=== PATIENT | female | born 1995 | race Caucasian/White ===

== ENCOUNTER 2018-01-09 12:25 | Emergency (ER) | payer OTHER ==
[2018-01-09 12:39] VITALS: TEMP 97.6; BMI 29.2
[2018-01-09] MEDS ORDERED: morphine CARPU-JECT 2 MG/1 ML DISP.SYRIN IM ONE (13:38)
[2018-01-09] MEDS ORDERED: ONDANSETRON *ODT* 4 MG TABLET SL ONE (13:38)
[2018-01-09] MEDS ORDERED: ACETAMINOPHEN 500 MG TABLET (FP) PO ONE (13:39)
[2018-01-09] MEDS ORDERED: MORPHINE SULFATE 10 MG/1 ML *VIAL ONE (13:45)
[2018-01-09] MEDS ORDERED: ACETAMINOPHEN 325 MG TABLET (FP) ONE (13:45)
[2018-01-09] MEDS ORDERED: ONDANSETRON *ODT* 4 MG TABLET ONE (13:46)
--- NOTE | 2018-01-09 13:48 | PDOC ---
History of Present Illness - General Chief Complaint: Pain Stated Complaint: ABD PAIN Time Seen by Provider: 01/09/18 13:04 History Source: Patient Exam Limitations: No Limitations - History of Present Illness Travel History: No Initial Comments: 01/09/18 13:39 HPI: This 22 yr old female was BIBA with c/o RLQ pain and a known ovarian cyst. Patient was initially seen overnight at [facility] for a complaint of right lower quadrant abdominal pain. She had been noted to have had a right ovarian cyst that has been causing her some difficulties and she needs to follow up as an outpatient for scheduled surgery. She was seen in [place] was given pain medications however she did not pick up operator her prescriptions and is now here for additional pain. She has a copy of all of her records from [place]. There was a CAT scan that was obtained with IV contrast at that time. He was found with an impression of a right ovarian teratoma measuring 4 x 2 x 4 cm however the right ovarian shows flow and appears to be present on Doppler imaging. Left ovary is grossly unremarkable as well as the uterus and endometrium. There was a set of labs obtained with a CBC and CMP which are all within normal limits. She was given a script for pain medication from [facility] last evening at 11 pm but did not pick up operator the prescription. It is at [facility]. She was given follow up instructions to follow up in [facility]. I have reviewed prior charts at , noted pt had MRI of pelvis in October [address] Farrell with a finding consistency with Right ovarian cyst and dermoid. Chief Compliant: ovarian cyst Pain location:RLQ pain sharp Duration: days Modifying factors:none Quality:throught out the abdomen Radiating:from RLQ Severity:08/14 Time:constant PMH: denies FH: Pt has not recently traveled outside the country in the last 30 days. Pt has not been in contact with people who have traveled out of the country, in contact with people who have been ill with fever, n, v, d. SH: smoking use: NONE illicit drug use: NONE alcohol use: NONE PSH: denies Home med use noted on JAN Allergies: NKA Immunizations: LMP 3 yrs ago, on Depo G 3 P 1 01/09/18 14:14 Past History - Past Medical History Allergies/Adverse Reactions: Allergies Allergy/AdvReac Type Severity Reaction Status Date / Time No Known Allergies Allergy Verified 01/09/18 16:57 Home Medications: Ambulatory Orders Tramadol HCl [Ultram] 50 mg PO BID 3 Days #6 tablet MDD 2 01/09/18 Asthma: No Cancer: No Cardiac Disorders: No COPD: No Diabetes: No HTN: No Seizures: No Thyroid Disease: No Other medical history: denies - Reproductive History Is Patient Now?: No - Suicide/Smoking/Psychosocial Hx Smoking History: Current some day smoker Have you smoked in the past 12 months: Yes Information on smoking cessation initiated: No Hx Alcohol Use: No (denies) Drug/Substance Use Hx: Yes Substance Use Type: Marijuana Hx Substance Use Treatment: No Review of Systems - Review of Systems Able to Perform ROS?: Yes Is the patient limited Croatian proficient: Yes Constitutional: No: Symptoms Reported HEENTM: No: Symptoms Reported Respiratory: No: Symptoms reported Cardiac (ROS): No: Symptoms Reported ABD/GI: Yes: Symptoms Reported, See HPI, Abdominal cramping. No: Constipated, Diarrhea, Nausea, Vomiting : No: Symptoms Reported Musculoskeletal: No: Symptoms Reported Integumentary: No: Symptoms Reported Neurological: Yes: Symptoms reported *Physical Exam - Vital Signs Last Vital Signs Temp Pulse Resp BP Pulse Ox 97.6 F 55 L 18 121/66 100 01/09/18 12:33 01/09/18 12:33 01/09/18 12:33 01/09/18 12:33 01/09/18 12:33 - Physical Exam General Appearance: Yes: Appropriately Dressed HEENT: positive: Normal Voice Neck: positive: Trachea midline Respiratory/Chest: positive: Lungs Clear Cardiovascular: positive: Regular Rate Gastrointestinal/Abdominal: positive: Normal Bowel Sounds, Flat, Soft, Guarding , Rebound, Tenderness (right lower quad). negative: Hernia, Hepatomegaly Extremity: positive: Normal Capillary Refill, Normal Inspection Medical Decision Making - Medical Decision Making 01/09/18 13:48 Patient initially seen and examined. She is complaining of right lower quadrant abdominal pain that is unchanged. She has not taken any pain medication since her last hospital visit in [facility] yesterday evening to last night. She did not get a chance workup her pain medication at the right aid At this time I have given the patient some pain medication for comfort as well as a heating pack. Will reassess. UA obtained to rule out any hCG 01/09/18 13:52 01/09/18 15:24 Pt states pain has subsided since pain meds given. Pt will be discharged with instructions to aid in her pain relief and encourage follow up 01/09/18 17:19 Pt attempted to retriage for more pain medications since she can't get to the pharmacy so she wanted more pain medication. Pt was sent lortab for pain for 3 days to [facility] of her choice and discharged. *DC/Admit/Observation/Transfer Diagnosis at time of Disposition: Teratoma of right ovary Ovarian cyst Qualifiers: Laterality: right Qualified Code(s): N83.201 - Unspecified ovarian cyst, right side - Discharge Dispostion Disposition: HOME Condition at time of disposition: Stable Admit: No - Prescriptions Prescriptions: Tramadol HCl [Ultram] 50 mg PO BID 3 Days #6 tablet MDD 2 - Referrals Referrals: Amy Farrell [Primary Care Provider] - - Patient Instructions Printed Discharge Instructions: DI for Ovarian Cyst, Ovarian Cyst Removal -- Laparoscopic Surgery Additional Instructions: Discharge instructions 1. Please follow up with your primary physician within the next few days and explain that you have been seen here in the Emergency Room for pain related ovarian cyst. You have a scheduled appt with a BUSINESS MANAGER at the [facility] scheduled. Please continue to keep this appointment. 2. If you experience any worsening of symptoms, such as increase pain, bleeding please return to the ER 3. Rest, avoid sexual intercourse,, douching, or tampon use. 4. Drink plenty of water, take tylenol or motrin for pain, you can use heating pack to the area. Avoid lifting or bending until pain resolved. - Post Discharge Activity
[2018-01-09 16:12] VITALS: BP 120/59; PULSE 94
[2018-01-09 22:26] LABS: URINE APPEARANCE SLCLOUDY; URINE BILIRUBIN NEGATIVE (NEGATIVE); URINE BLOOD 3+ (NEGATIVE); URINE COLOR YELLOW; URINE GLUCOSE (UA) NEGATIVE (NEGATIVE); URINE KETONE 2+ (NEGATIVE); URINE LEUK ESTERASE NEGATIVE (NEGATIVE); URINE NITRITE NEGATIVE (NEGATIVE); URINE UROBILINOGEN NEGATIVE mg/dL (0.2-1.0)
[2018-01-09 22:53] LABS: URINE PROTEIN 1+ (NEGATIVE)
[2018-01-09 23:07] LABS: EPI CELLS RARE /HPF (FEW); URINE BACTERIA RARE /hpf (NONE SEEN); URINE MUCUS MANY
== END 2018-01-09 16:10 | disposition home or self-care (01) ==
LOC: JER 12:25
PROC: 3E023NZ Introduction of Analgesics, Hypnotics, Sedatives into Muscle, Percutaneous Approach (ICD-10-PCS; principal; 2018-01-09)
DX: D27.0 Benign neoplasm of right ovary (principal); F17.210 Nicotine dependence, cigarettes, uncomplicated
CPT/HCPCS: 81003; 81015; 84703; 99283-25

== ENCOUNTER 2018-01-10 10:22 | Emergency (ER) | payer OTHER ==
[2018-01-10 10:46] VITALS: BMI 29.2
[2018-01-10] MEDS ORDERED: ACETAMINOPHEN 1000 MG/100 ML VIAL (NON FORMULARY) IVPB ONE (10:58)
[2018-01-10] MEDS ORDERED: ONDANSETRON 4 MG/2 ML VIAL IVPB ONE (10:58)
--- NOTE | 2018-01-10 11:06 | PDOC ---
History of Present Illness <Eddy Yi - Last Filed: 01/10/18 13:33> - History of Present Illness Initial Comments: 01/10/18 11:13 "The patient is a 22 year old female, with a significant past medical history of right ovarian cyst/teratoma, who presents to the emergency department with right lower quadrant pain, nausea, and vomiting for approximately 4 days. As per patient she was seen at [facility] on 01/08/18 and at [facility] on 01/09/[facility] with similar complaints. Patient had CT scan 2 days ago at [facility] that reportedly showed a 4cm teratoma. Pt was discharged with script for tramadol and foot tender f/u appointment TODAY. However, pt reports she has not picked up her prescriptions and came to ED today for continued pain. Patient reports her pain was initially a 10/10 this morning. However after taking Ibuprofen patient states her pain went down to a 6/10. Patient denies any dysuria, hematuria, frequency, urgency, vaginal bleeding or discharge. She denies any fever or chills. Of note, pt states that she first experience pain like this 3 months ago. She had a pelvic MRI at the time here that showed 8cm ovarian dermoid cyst. Pt has not f/u'ed with manager mental health since then. Allergies: NKDA Past Surgical History: None reported Social History: Non smoker. No ETOH or recreational drug use. " <Dino Black - Last Filed: 01/10/18 20:14> - General Chief Complaint: Pain Stated Complaint: ABD PAIN Time Seen by Provider: 01/10/18 10:55 Past History <Eddy Yi - Last Filed: 01/10/18 13:33> - Past Medical History Asthma: No Cancer: No Cardiac Disorders: No COPD: No DVT: No Diabetes: No Disorders: (fibroids.) HTN: No Seizures: No Thyroid Disease: No - Suicide/Smoking/Psychosocial Hx Smoking History: Never smoked Have you smoked in the past 12 months: Yes Information on smoking cessation initiated: No Hx Alcohol Use: No Drug/Substance Use Hx: No Substance Use Type: None, Marijuana Hx Substance Use Treatment: No <Dino Black - Last Filed: 01/10/18 20:14> - Past Medical History Allergies/Adverse Reactions: Allergies Allergy/AdvReac Type Severity Reaction Status Date / Time No Known Allergies Allergy Verified 01/10/18 10:30 Home Medications: Ambulatory Orders Tramadol HCl [Ultram] 50 mg PO BID 3 Days #6 tablet MDD 2 01/09/18 Magnesium Citrate [Citroma -] 300 ml PO ONCE #1 bottle 01/10/18 Review of Systems - Review of Systems Comments:: 01/10/18 11:16 "GENERAL/CONSTITUTIONAL: No fever or chills. No weakness. HEAD, EYES, EARS, NOSE AND THROAT: No change in vision. No ear pain or discharge. No sore throat. CARDIOVASCULAR: No chest pain or shortness of breath. RESPIRATORY: No cough, wheezing, or hemoptysis. GASTROINTESTINAL: Yes right lower quadrant pain, nausea, vomiting. No diarrhea or constipation. GENITOURINARY: No dysuria, frequency, or change in urination. MUSCULOSKELETAL: No joint or muscle swelling or pain. No neck or back pain. SKIN: No rash NEUROLOGIC: No headache, vertigo, loss of consciousness, or change in strength/ sensation. ENDOCRINE: No increased thirst. No abnormal weight change. HEMATOLOGIC/LYMPHATIC: No anemia, easy bleeding, or history of blood clots. ALLERGIC/IMMUNOLOGIC: No hives or skin allergy. " <Dino Black - Last Filed: 01/10/18 20:14> *Physical Exam - Vital Signs Last Vital Signs Temp Pulse Resp BP Pulse Ox 98.8 F 55 L 12 108/50 100 01/10/18 10:31 01/10/18 10:31 01/10/18 10:31 01/10/18 10:31 01/10/18 10:31 <Eddy Yi - Last Filed: 01/10/18 13:33> - Vital Signs Last Vital Signs Temp Pulse Resp BP Pulse Ox 98.8 F 55 L 12 108/50 100 01/10/18 10:31 01/10/18 10:31 01/10/18 10:31 01/10/18 10:31 01/10/18 10:31 - Physical Exam Comments: 01/10/18 11:05 "GENERAL: Awake, alert, and fully oriented, in no acute distress HEAD: No signs of trauma EYES: PERRLA, EOMI, sclera anicteric, conjunctiva clear ENT: Auricles normal inspection, hearing grossly normal, nares patent, oropharynx clear without exudates. Moist mucosa NECK: Nontender, no stepoffs, Normal ROM, supple, no lymphadenopathy, JVD, or masses LUNGS: Breath sounds equal, clear to auscultation bilaterally. No wheezes, and no crackles HEART: Regular rate and rhythm, normal S1 and S2, no murmurs, rubs or gallops ABDOMEN: Soft, mild RLQ tenderness, normoactive bowel sounds. No guarding, no rebound. No masses EXTREMITIES: Normal range of motion, no edema. No clubbing or cyanosis. No cords, erythema, or tenderness NEUROLOGICAL: Cranial nerves II through XII intact. 5/5 strength and sensation in all extremities, Normal speech, normal gait, normal cerebellar function SKIN: Warm, Dry, normal turgor, no rashes or lesions noted. <Dino Black - Last Filed: 01/10/18 20:14> ED Treatment Course - LABORATORY CBC & Chemistry Diagram: 01/10/18 11:10 01/10/18 11:10 - ADDITIONAL ORDERS Additional order review: Laboratory Results 01/10/18 01/10/18 01/10/18 11:10 11:10 11:10 PT with INR 12.60 H INR 1.12 PTT (Actin FS) 30.1 Sodium 140 Potassium 3.9 Chloride 105 Carbon Dioxide 25 Anion Gap 10 BUN 11 Creatinine 0.7 Creat Clearance w eGFR > 60 Random Glucose 95 Lactic Acid 1.4 Calcium 8.7 Total Bilirubin 0.8 AST 14 L ALT 22 Alkaline Phosphatase 91 Total Protein 7.6 Albumin 3.8 Blood Type Antibody Screen 01/10/18 11:10 PT with INR INR PTT (Actin FS) Sodium Potassium Chloride Carbon Dioxide Anion Gap BUN Creatinine Creat Clearance w eGFR Random Glucose Lactic Acid Calcium Total Bilirubin AST ALT Alkaline Phosphatase Total Protein Albumin Blood Type A POSITIVE Antibody Screen Negative 01/10/18 11:10 RBC 4.52 D MCV 91.8 MCHC 34.0 RDW 14.2 D MPV 9.9 Neutrophils % 73.7 Lymphocytes % 20.2 D Monocytes % 5.4 Eosinophils % 0.2 Basophils % 0.5 D - RADIOLOGY Radiograph Interpretation: 01/10/18 13:27 EXAM: Transvaginal US INTERPRETED BY: Dr. Chinchilla REVIEWED BY: Dr. Black IMPRESSION: Slightly coarse echotexture of the uterus which is nonspecific. Normal endometrial stripe. Normal-appearing left ovary with multiple small follicles and normal vascular flow. Large echogenic masslike density again seen in the right adnexa measuring 6 x 5 cm with posterior shadowing/attenuated echoes again suggestive of the ethmoid. Further evaluation and confirmation with MRI of the pelvis with be the study of choice. - Medications Given in the ED: ED Medications Discontinued Medications Generic Name Dose Route Start Last Admin Trade Name Serg PRN Reason Stop Dose Admin Acetaminophen 1,000 mg 01/10/18 10:58 01/10/18 11:28 Ofirmev Injection - IVPB 01/10/18 10:59 1,000 mg ONCE ONE Administration Ondansetron HCl 4 mg 01/10/18 10:58 01/10/18 11:29 Zofran Injection IVPB 01/10/18 10:59 4 mg ONCE ONE Administration <Eddy Yi - Last Filed: 01/10/18 13:33> - LABORATORY CBC & Chemistry Diagram: 01/10/18 11:10 01/10/18 11:10 - RADIOLOGY Radiology Studies Ordered: Category Date Time Status TRANSVAGINAL ULTRASOUND US [US] Stat Ultrasound 01/10/18 10:56 Ordered <Dino Black - Last Filed: 01/10/18 20:14> Medical Decision Making - Medical Decision Making 01/10/18 13:18 First call placed to Dr. Rose at 13:18. Awaiting call back. Call returned by Dr. Rose at 13:26, Dr. Andrew production cost estimator. First call placed to Dr. Andrew at 13:36. Case discussed at this time. <Eddy Yi - Last Filed: 01/10/18 13:33> - Medical Decision Making 01/10/18 11:01 22 F with RLQ pain x 3 days. Has had extensive work up at [facility], including labwork and CT scan. Reportedly found to have 4cm teratoma on R ovary 2 days ago. However, imaging from 10/2017 shows 8.8cm cyst. Pt with no acute changes today but with persistent pain. Given colicky nature of pain, will obtain TVUS to r/o torsion given size of cyst. - Labs - TVUS - Pain control - OB consult 01/10/18 15:07 TVUS shows R ovarian cyst. OB consulted for evaluation of possible ovarian torsion. 01/10/18 15:[address] Andrew, cleared for DC today with OB f/u next week. Pt reassessed - pain is now tolerable Pt is well appearing,vitals wnl, clinically stable for DC. I discussed the physical exam findings, ancillary test results and final diagnoses with the patient. I answered all of the patient's questions. The patient was satisfied with the care received and felt comfortable with the discharge plan and treatment plan. The patient agrees to follow up with the primary care physician within 24-72 hours. <Dino Black - Last Filed: 01/10/18 20:14> *DC/Admit/Observation/Transfer - Attestations Scribe Attestion: 01/10/18 13:28 Documentation prepared by Eddy Yi, acting as medical and scientific illustrator for Dino Black MD. <Eddy Yi - Last Filed: 01/10/18 13:33> - Attestations Physician Attestion: 01/10/18 15:19 I, Dr. Dino Black MD, attest that this document has been prepared under my direction and personally reviewed by me in its entirety. I further attest, that it accurately reflects all work, treatment, procedures and medical decision -making performed by me. <Dino Black - Last Filed: 01/10/18 20:14> Diagnosis at time of Disposition: Ovarian cyst - Discharge Dispostion Disposition: HOME - Prescriptions Prescriptions: Magnesium Citrate [Citroma -] 300 ml PO ONCE #1 bottle - Referrals Referrals: Priscila Andrew MD [Staff Physician] - - Patient Instructions Printed Discharge Instructions: DI for Ovarian Cyst Additional Instructions: Please follow up with your foot tender on Sunday as scheduled. air conditioning supervisor your prescription for pain medication and take it as prescribed. If you experience persistent or worsening pain, fevers, vomiting, or any other concerning symptoms, return to the ER immediately.
[2018-01-10] MEDS ORDERED: ACETAMINOPHEN INJECTION 100 ML IVPB ONE (11:19)
[2018-01-10] MEDS ORDERED: ONDANSETRON 4 MG/2 ML VIAL ONE (11:19)
[2018-01-10 11:32] LABS: BASO % 0.5 % (0-2.0); EOS % 0.2 % (0-4.5); HEMATOCRIT 41.4 % (32.4-45.2); HEMOGLOBIN 14.1 GM/dL (10.7-15.3); LYMPH % 20.2 % (8-40); MCH 31.2 pg (25.7-33.7); MEAN CELL VOLUME 91.8 fl (80-96); MEAN PLT VOLUME 9.9 fl (7.5-11.1); MONO % 5.4 % (3.8-10.2); NEUT % 73.7 % (42.8-82.8); PLATELET COUNT 196 K/MM3 (134-434); RBC 4.52 M/mm3 (3.60-5.2); RDW 14.2 % (11.6-15.6); WHITE BLOOD COUNT 6.6 K/mm3 (4.0-10.0)
[2018-01-10 11:43] LABS: INR 1.12 (0.82-1.09); PROTHROMBIN TIME (PATIENT) 12.6 SEC (9.98-11.88)
[2018-01-10 11:46] LABS: ACTIVATED PTT 30.1 SECONDS (26.9-34.4)
[2018-01-10 12:09] LABS: ALBUMIN 3.8 g/dl (3.4-5.0); ANION GAP 10 (8-16); BILIRUBIN,TOTAL 0.8 mg/dL (0.2-1.0); BLOOD UREA NITROGEN 11 mg/dL (7-18); CALCIUM 8.7 mg/dL (8.5-10.1); CHLORIDE 105 mmol/L (98-107); CO2 25 mmol/L (21-32); CREATININE 0.7 mg/dL (0.55-1.02); GLUCOSE,RANDOM 95 mg/dL (74-106); POTASSIUM 3.9 mmol/L (3.5-5.1); SGOT/AST 14 U/L (15-37); SGPT/ALT 22 U/L (12-78); SODIUM 140 mmol/L (136-145); TOT PROT 7.6 g/dl (6.4-8.2)
[2018-01-10 12:10] LABS: ALK PHOS 91 U/L (45-117)
--- NOTE | 2018-01-10 15:13 | CON.OBG ---
Consult Consult Specialty:: head of sales and marketing Referred by:: Dr DAVON Sun Reason for Consultation:: Rt Ovarian cyst , RLQ Pain - History of Present Illness Chief Complaint: 22 yrs , LMP 3 yrs ago , c/o rLQ pain for 3 days . sonogram done is reported 6x5 cm complex , echogenic mass, calcification, with hypecoic area , seen as before in [place]ier noted . . lt ovary mutiple follicular cysts . ut normal. History of Present Illness: pt states she has sudden pain 3 days ago , she went to ER in [facility] . she was told she has mass in her Rt ovary She [facility] , she was sent home on pain med, she could not fill prescription due to weather condition .she returned to ER today in AM .US is done. pt states she has cyst in Rt ovary during her 3 yrs ago, she was told she will need surgery for it . she did not go for it. Records ER shows , she was in , MRi was done was reported 8 cm Rt adnexal possible Dermoid cyst, 1.2 cm uterine leiomyoma . Career Services Officer History MH , Present, amenorrhea for 3 years, she is on Depo Provera inj q 3 months [facility] to [facility] Inj Past MH reg cycle x 28-30 days x no pain. Last Pap > 1 year ago, she is due for one according to her no h/o abn pap Currently not seually active for 6 months no h/o STD OB hx G1 2013 Sp ab G2 2014 Ind AB G3 12/23/2014 at [facility], [facility] . pt states she was told she has cyst in ovary , which will need removal after delivery - History Source History Provided By: Patient, Medical Record Limitations to Obtaining History: No Limitations - Past Medical History NATURAL RESOURCES MANAGER: No: Migraine, Seizure Cardio/Vascular: No: HTN, Murmur Pulmonary: No: Asthma Gastrointestinal: Yes: Other (vomiting yesterday x 3 ). No: Cancer Hepatobiliary: Yes: Other (none known ) Renal/: No: UTI Reproductive: Yes: Fibroids (seen on MRI 1.2 cm subserosal in 10/2017), Other ( Rt OVarian cyst ( Dermoid)). No: Ectopic , Endometriosis, Polycystic Ovary Syndrome, Postmenopausal ...LMP: 01/02/15 (3 years ago , amenorrhea secondory to Depo provera injections ) ...: No (ucg neg on 01/09/18) ...: 3 ...Para: 1 (12/23/2014 at [facility]) Heme/Onc: No: Anemia Infectious Disease: No: STD's Psych: No: Addictions, Anxiety, Bipolar, Depression - Past Surgical History Past Surgical History: Yes: None - Alcohol/Substance Use Hx Alcohol Use: No History of Substance Use: reports: Marijuana (once aweek ) - Smoking History Smoking history: Never smoked Have you smoked in the past 12 months: Yes - Social History History of Recent Travel: No Home Medications - Allergies Allergies/Adverse Reactions: Allergies Allergy/AdvReac Type Severity Reaction Status Date / Time No Known Allergies Allergy Verified 01/10/18 10:30 - Home Medications Home Medications: Ambulatory Orders Tramadol HCl [Ultram] 50 mg PO BID 3 Days #6 tablet MDD 2 01/09/18 Physical Exam-BLOOD BANK SUPERVISOR Vital Signs: Vital Signs Temperature 98.8 F 01/10/18 10:31 Pulse Rate 55 L 01/10/18 10:31 Respiratory Rate 12 01/10/18 10:31 Blood Pressure 108/50 01/10/18 10:31 O2 Sat by Pulse Oximetry (%) 100 01/10/18 10:31 Constitutional: Yes: Well Nourished, Anxious, Mild Distress (pain scale 4-5 /10) Eyes: Yes: WNL HENT: Yes: WNL Neck: Yes: WNL Cardiovascular: Yes: WNL Respiratory: Yes: WNL Gastrointestinal: Yes: WNL, Normal Bowel Sounds, Soft ...Rectal Exam: Yes: Deferred Renal/: No: CVA Tenderness - Left, CVA Tenderness - Right Pelvis: Yes: Tenderness (lower abdomen) External Genitalia: Yes: Normal Internal Exam Deferred: Yes Vaginal Exam: Yes: Discharge (normal). No: Bleeding Cervix: Yes: Normal. No: Cerv Motion Tenderness Uterus: Yes: Normal, Firm, Retroverted Adnexa: Tender: Right, Mass: Right (rt side 5 cm mass felt . tender, enchroaching in front of uterus , ) Breast(s): Yes: WNL. No: Mass Musculoskeletal: Yes: WNL Extremities: Yes: WNL. No: Calf Tenderness Edema: No Integumentary: Yes: Tattoos Neurological: Yes: WNL, Alert, Oriented ...Motor Strength: WNL Psychiatric: Yes: WNL Labs: CBC, BMP 01/10/18 11:10 01/10/18 11:10 Laboratory Tests 01/10/18 11:10 PT with INR 12.60 H INR 1.12 PTT (Actin FS) 30.1 Laboratory Tests 01/10/18 11:10 Blood Type A POSITIVE Problem List - Problems (1) Teratoma of right ovary Code(s): D27.0 - BENIGN NEOPLASM OF RIGHT OVARY Assessment/Plan 22 yrs , on depo provera shots , diagnosed Rt ovarian benign teratoma .rlq pain, possible intermttent torsion Plan pt has appt with Career Services Officer at , [facility] on Sunday . she can be sceduled as planned surgery, discuss with her optios of Laproscopic rt ovarian cystectomy versus Expl lap rt ovarian cystectomy , spillage of contents discussed, possible oopherectomy notified. she is concerned about 1.2 cm leimyoma seen on MRI , I assured her too small , does not need surgery pt can be discharged on pain meds to befollwed in the clinic , Plan for elective surgery
[2018-01-10] MEDS ORDERED: ACETAMINOPHEN 325 MG TABLET (FP) PO ONE (15:55)
[2018-01-10] MEDS ORDERED: ACETAMINOPHEN 325 MG TABLET (FP) ONE (15:58)
[2018-01-10 16:19] VITALS: BP 112/70; PULSE 58; TEMP 98.6
== END 2018-01-10 16:20 | disposition home or self-care (01) ==
LOC: JER 10:22
PROC: 3E033GC Introduction of Other Therapeutic Substance into Peripheral Vein, Percutaneous Approach (ICD-10-PCS; principal; 2018-01-10)
DX: D27.0 Benign neoplasm of right ovary (principal)
CPT/HCPCS: 36415; 76830-TC; 80053; 83605; 85025; 85610; 85730; 86850; 86900; 86901; 99282-25

== ENCOUNTER 2019-09-01 12:55 | Emergency (ER) | payer OTHER ==
[2019-09-01 13:17] VITALS: BP 115/85; PULSE 60; TEMP 98; BMI 28.1
[2019-09-01] MEDS ORDERED: DIPHTH,PERTUSS(ACELL),TET 0.5 ML DISP.SYRIN IM ONE ×2 (14:09→14:50)
--- NOTE | 2019-09-01 14:09 | PDOC ---
History of Present Illness - General Chief Complaint: Injury Stated Complaint: LT KNEE INJURY/LOWER BACK PAIN Time Seen by Provider: 09/01/19 13:49 History Source: Patient Exam Limitations: No Limitations - History of Present Illness Initial Comments: 09/01/19 14:11 Chief complaint: Fall Patient is a healthy 24-year-old female who states last she was walking up the stairs, tripped and fell on her knees. Patient thought she would be okay but her left knee continues to bother her and is swollen. She is ambulatory GENERAL/CONSTITUTIONAL: No fever, weakness. dizziness HEAD, EYES, EARS, NOSE AND THROAT: No change in vision. No ear pain or discharge. No sore throat. CARDIOVASCULAR: No chest pain RESPIRATORY: No shortness of breath or cough GASTROINTESTINAL: No pain, nausea, vomiting, diarrhea or constipation GENITOURINARY: No dysuria MUSCULOSKELETAL: No neck or back pain, + knee injury SKIN: No rash NEUROLOGIC: No headache, vertigo, loss of consciousness, or loss of sensation. GENERAL: The patient is awake, alert, and fully oriented, in no acute distress. HEAD: Normal with no signs of trauma. EYES: Pupils equal, round and reactive to light, sclera anicteric, conjunctiva clear. ENT: pharynx: no erythema, no exudate, uvula midline NECK: supple CHEST: clear, nontender, rr ABD: soft, nontender BACK: no tenderness or signs of injury EXTREMITIES: Right knee with no swelling or tenderness, full range of motion, neurovascular intact. Left knee with swelling, ecchymosis, tenderness to the anterior aspect, limited range of motion, secondary to pain, neurovascular intact. Rest of extremities, normal range of motion, no edema. NEUROLOGICAL: Normal speech, ambulating with cane SKIN: Warm, Dry Past History - Past Medical History Allergies/Adverse Reactions: Allergies Allergy/AdvReac Type Severity Reaction Status Date / Time No Known Allergies Allergy Verified 09/01/19 13:15 Home Medications: Ambulatory Orders Tramadol HCl [Ultram] 50 mg PO BID 3 Days #6 tablet MDD 2 01/09/18 Magnesium Citrate [Citroma -] 300 ml PO ONCE #1 bottle 01/10/18 Ondansetron HCl [Zofran] 4 mg PO TID PRN #6 tablet 01/12/18 Asthma: No Cancer: No Cardiac Disorders: No COPD: No DVT: No Diabetes: No Disorders: (fibroids.) HTN: No Seizures: No Thyroid Disease: No - Psycho Social/Smoking Cessation Hx Smoking History: Unknown if ever smoked Have you smoked in the past 12 months: No Information on smoking cessation initiated: No Hx Alcohol Use: No Drug/Substance Use Hx: No Substance Use Type: None, Marijuana Hx Substance Use Treatment: No *Physical Exam - Vital Signs Last Vital Signs Temp Pulse Resp BP Pulse Ox 98 F 60 16 115/85 100 09/01/19 13:15 09/01/19 13:15 09/01/19 13:15 09/01/19 13:15 09/01/19 13:15 Medical Decision Making - Medical Decision Making 09/01/19 14:24 24-year-old female, healthy, fell several days ago walking up the stairs, mainly here for injury to the left knee which is not gotten better, is swollen and ecchymotic. Patient is ambulatory and neurologically intact. When asked about , patient was not sure, she will get test, she is aware she can have x-ray even if she is , we will discuss after test. Patient is also not up-to-date with tetanus. negative knee xray negative Discussed issues, findings, results, applicable medications and treatments and follow-up. All these were understood and all questions were answered 09/01/19 14:55 Discharge - Discharge Information Problems reviewed: Yes Clinical Impression/Diagnosis: Left knee injury Qualifiers: Encounter type: initial encounter Qualified Code(s): S89.92XA - Unspecified injury of left lower leg, initial encounter Condition: Stable Disposition: HOME - Admission No - Additional Discharge Information Prescription Drug Monitoring Program (I-STOP) results: I-STOP not reviewed - Follow up/Referral Referrals: Gerry Crane MD [Staff Physician] - - Patient Discharge Instructions Patient Printed Discharge Instructions: DI for Knee Pain Additional Instructions: Elevate Motrin 600 mg every 6 hours for pain. clean knee with soap and water and apply bacitracin 2 times daily return to er if fever or knee is red, hot and swollen Call the orthopedist today - Post Discharge Activity
== END 2019-09-01 15:12 | disposition home or self-care (01) ==
LOC: JERFT 12:55
PROC: 3E0234Z Introduction of Serum, Toxoid and Vaccine into Muscle, Percutaneous Approach (ICD-10-PCS; principal; 2019-09-01)
DX: S89.82XA Other specified injuries of left lower leg, initial encounter (principal); S80.02XA Contusion of left knee, initial encounter; W10.8XXA Fall (on) (from) other stairs and steps, initial encounter; Y93.89 Activity, other specified; Y92.89 Other specified places as the place of occurrence of the external cause; Y99.8 Other external cause status
CPT/HCPCS: 73562-TC-LT-FY; 84703; 90471; 90715; 99281-25

== ENCOUNTER 2019-11-12 08:52 | Emergency (ER) | payer OTHER ==
[2019-11-12 09:13] VITALS: BP 112/72; PULSE 85; TEMP 98.4; BMI 29.4
[2019-11-12] MEDS ORDERED: IBUPROFEN 600 MG TABLET (FP) PO ONE ×2 (09:50→09:55)
--- NOTE | 2019-11-12 10:13 | PDOC ---
History of Present Illness - General Chief Complaint: Cold Symptoms Stated Complaint: COLD LIKE SYS Time Seen by Provider: 11/12/19 09:37 History Source: Patient Exam Limitations: No Limitations - History of Present Illness Initial Comments: 11/12/19 10:08 Patient is a 24-year-old female who admits to 3 days of subjective fevers, cough , body aches, sore throat and chills. She states she has been taking Tylenol with some relief. She denies getting a flu shot this year. She does admit to vomiting this morning. She denies any past medical history. Past History - Past Medical History Allergies/Adverse Reactions: Allergies Allergy/AdvReac Type Severity Reaction Status Date / Time No Known Allergies Allergy Verified 09/01/19 13:15 Home Medications: Ambulatory Orders NK [No Known Home Medication] 11/12/19 Asthma: No Cancer: No Cardiac Disorders: No COPD: No DVT: No Diabetes: No Disorders: (fibroids.) HTN: No Seizures: No Thyroid Disease: No - Immunization History Immunization Up to Date: Yes - Psycho Social/Smoking Cessation Hx Smoking History: Never smoked Have you smoked in the past 12 months: No Information on smoking cessation initiated: No Hx Alcohol Use: No Drug/Substance Use Hx: No Substance Use Type: None, Marijuana Hx Substance Use Treatment: No Review of Systems - Review of Systems Comments:: 11/12/19 10:09 - Review of Systems Able to Perform ROS?: Yes Constitutional: Night Sweats, Weakness; Positive chills, subjective fevers, loss of appetite HEENTM: No: Eye Pain, Vision changes, Ear Pain, Throat Swelling, Mouth Pain, Difficulty Swallowing; Positive Throat Pain, Respiratory: No: Shortness of Breath, Wheezing; Positive cough and Sputum Production Cardiac (ROS): No: Chest Pain, Chest Tightness, Palpitations, Irregular Heart Beat, Edema ABD/GI: No: Abdominal Pain, Diarrhea, Positive Nausea, Vomiting Musculoskeletal: No: Back Pain, Joint Pain, Muscle Weakness, Neck Pain; Positive muscle aches Integumentary: No: Lesions, Rash Neurological: No: Headache, Numbness, Tingling, Weakness, Speech Difficulties *Physical Exam - Vital Signs Last Vital Signs Temp Pulse Resp BP Pulse Ox 98.4 F 85 18 112/72 98 11/12/19 09:09 11/12/19 09:09 11/12/19 09:09 11/12/19 09:09 11/12/19 09:09 - Physical Exam 11/12/19 10:12 - Physical Exam General Appearance: Nourished, Appropriately Dressed, No Distress HEENT: EOMI, Normal Voice, TMs Normal, No Pharyngeal Erythema, Hearing Grossly Normal, No TM Bulging. No Muffled/Hoarse voice, No Tonsillar Exudate, No Tonsillar Erythema, No TM Dullness, No TM Erythema, Positive: Nasal Congestion, No Rhinorrhea Neck: Supple, No Rigidity, No Decreased range of motion: Positive anterior cervical lymphadenopathy appreciated Respiratory/Chest: Lungs Clear, Normal Breath Sounds. No Respiratory Distress, No Accessory Muscle Use Cardiovascular: Regular Rhythm, Regular Rate, S1, S2 Gastrointestinal/Abdominal: Normal Bowel Sounds, Soft. Non-tender, No Guarding , No Rebound, No Rigidity Musculoskeletal: Normal Inspection. No Decreased Range of Motion Extremity: Normal Capillary Refill, Normal Inspection Integumentary: Normal Color, Dry. No Rash Neurologic: frit coater II-XII NML intact, Fully Oriented, Alert, Normal Mood/Affect, Normal Response ED Treatment Course - ADDITIONAL ORDERS Additional order review: 11/12/19 10:29 Laboratory Tests 11/12/19 09:05 Influenza A (Rapid) Negative Influenza B (Rapid) Positive A - Medications Given in the ED: ED Medications Discontinued Medications Generic Name Dose Route Start Last Admin Trade Name Frankq PRN Reason Stop Dose Admin Ibuprofen 600 mg 11/12/19 09:50 11/12/19 10:06 Motrin - PO 11/12/19 09:51 600 mg ONCE ONE Administration Medical Decision Making - Medical Decision Making 11/12/19 10:30 Patient is positive for influenza B. She has been made aware that she is outside the window of Tamiflu treatment. She should get plenty of rest and drink plenty of fluids. She should alternate Tylenol and ibuprofen for pain and fevers. She should follow-up with her primary doctor within 1 to 2 days for repeat evaluation. Discharge - Discharge Information Problems reviewed: Yes Clinical Impression/Diagnosis: Influenza B Condition: Stable Disposition: HOME - Follow up/Referral Referrals: [facility] [Provider Group] - Patient Discharge Instructions Patient Printed Discharge Instructions: DI for Influenza -- Adult Additional Instructions: Get plenty of rest and drink plenty of fluids. Take Tylenol or ibuprofen for fevers or body aches. Follow-up with your primary doctor within 1 to 2 days for repeat evaluation. If you do not have 1 a referral has been given to you. Return to the ED for high fevers, shaking chills, profuse vomiting or any other worsening symptoms. - Post Discharge Activity Work/Back to School Note: Back to Work
== END 2019-11-12 10:38 | disposition home or self-care (01) ==
LOC: JERFT 08:52
DX: J10.1 Influenza due to other identified influenza virus with other respiratory manifestations (principal)
CPT/HCPCS: 87804; 99281-25

== ENCOUNTER 2021-08-27 16:38 | Emergency (ER) | payer OTHER ==
[2021-08-27 16:47] VITALS: BP 119/71; PULSE 63; TEMP 98.3; BMI 29.1
[2021-08-27 18:30] LABS: BASO % 0.5 % (0-2.0); EOS % 1.2 % (0-4.5); HEMATOCRIT 41.1 % (32.4-45.2); HEMOGLOBIN 13.9 GM/dL (10.7-15.3); LYMPH % 27.9 % (8-40); MCH 31.5 pg (25.7-33.7); MCHC 33.8 g/dl (32.0-36.0); MEAN CELL VOLUME 93.2 fl (80-96); MEAN PLT VOLUME 9.3 fl (7.5-11.1); MONO % 9.1 % (3.8-10.2); NEUT % 61.3 % (42.8-82.8); PLATELET COUNT 242 10^3/uL (134-434); RBC 4.41 M/mm3 (3.60-5.2); RDW 13.8 % (11.6-15.6); WHITE BLOOD COUNT 10.2 K/mm3 (4.0-10.0)
[2021-08-27 18:33] LABS: EPI CELLS >36 /uL (0-25.1); HCG,QUALITATIVE URINE Negative; HYALINE CASTS 7 /uL (0-3.1); PH,URINE 6.5 (5.0-8.0); URINE APPEARANCE CLOUDY; URINE BACTERIA 2464 /uL (0-1359); URINE BILIRUBIN NEGATIVE (NEGATIVE); URINE COLOR YELLOW; URINE GLUCOSE (UA) NEGATIVE (NEGATIVE); URINE KETONE NEGATIVE (NEGATIVE); URINE LEUK ESTERASE 2+ (NEGATIVE); URINE NITRITE NEGATIVE (NEGATIVE); URINE PROTEIN NEGATIVE (NEGATIVE); URINE RBC 3 /uL (0-23.9); URINE UROBILINOGEN 0.2 mg/dL (0.2-1.0); URINE WBC 213 /uL (0-25.8)
[2021-08-27 19:00] LABS: CALCIUM 8.9 mg/dL (8.5-10.1)
[2021-08-27 19:01] LABS: ALBUMIN 3.7 g/dl (3.4-5.0); BLOOD UREA NITROGEN 10.4 mg/dL (7-18)
[2021-08-27 19:04] LABS: CREATININE 0.6 mg/dL (0.55-1.3)
[2021-08-27 19:06] LABS: BILIRUBIN,TOTAL 0.4 mg/dL (0.2-1); TOT PROT 7.7 g/dl (6.4-8.2)
== END 2021-08-27 19:45 | disposition home or self-care (01) ==
LOC: JER 16:38 → JERFT 16:38
DX: N30.00 Acute cystitis without hematuria (principal)
CPT/HCPCS: 36415; 80053; 81003; 84703; 85025; 87086; 99283-25

== ENCOUNTER 2024-11-16 15:57 | Inpatient (IN) | payer OTHER ==
[2024-11-16 17:14] VITALS: BMI 32.5
[2024-11-16 17:14] LABS: BASO % 0.2 % (0-2.0); EOS % 1.5 % (0-4.5); HEMATOCRIT 37.8 % (32.4-45.2); HEMOGLOBIN 12.3 GM/dL (10.7-15.3); LYMPH % 18.3 % (8-40); MCH 29.8 pg (25.7-33.7); MCHC 32.7 g/dl (32.0-36.0); MEAN CELL VOLUME 91.3 fl (80-96); MEAN PLT VOLUME 10.7 fl (7.5-11.1); MONO % 8.2 % (3.8-10.2); NEUT % 71.8 % (42.8-82.8); PLATELET COUNT 189 10^3/uL (134-434); RBC 4.14 M/mm3 (3.60-5.2); RDW 15.2 % (11.6-15.6); WHITE BLOOD COUNT 10.9 K/mm3 (4.0-10.0)
[2024-11-16 17:23] LABS: INR 0.96 (0.83-1.09)
[2024-11-16 17:25] LABS: ACTIVATED PTT 27.3 SECONDS (25.2-36.5)
[2024-11-16] MEDS: LACTATED RINGERS SOLUTION 1,000 ML/1,000 ML INFUS.BAG IV SCH (17:48)
[2024-11-16 18:07] LABS: POTASSIUM 4.1 mmol/L (3.5-5.1)
[2024-11-16 18:10] LABS: CALCIUM 8.8 mg/dL (8.5-10.1)
[2024-11-16 18:11] LABS: BLOOD UREA NITROGEN 9.5 mg/dL (7-18)
[2024-11-16 18:14] LABS: CREATININE 0.6 mg/dL (0.55-1.3)
[2024-11-16] MEDS ORDERED: OXYTOCIN 30 UNITS in 0.9% NS 30 UNIT/500 ML INFUS.BAG IVPB ONE (20:12)
[2024-11-16] MEDS: OXYTOCIN 30 UNITS in 0.9% NS 30 UNIT/500 ML INFUS.BAG IVPB SCH (20:20)
[2024-11-16] MEDS ORDERED: BUTORPHANOL TARTRATE 2 MG/ML VIAL ONE (23:42)
[2024-11-16] MEDS ORDERED: PROMETHAZINE HCL 25 MG/1 ML VIAL ONE (23:43)
[2024-11-16] MEDS: PROMETHAZINE HCL 25 MG/1 ML VIAL IVPB PRN (23:50)
[2024-11-16] MEDS: BUTORPHANOL TARTRATE 2 MG/ML VIAL IVPB PRN (23:50)
[2024-11-17] MEDS ORDERED: FENTANYL/BUPIVACAINE/NS/PF - PCEA - 50 ML DISP.SYRIN EP ONE (02:26)
[2024-11-17] MEDS ORDERED: NALOXONE HCL 0.4 MG/ML VIAL IVPUSH PRN (02:37)
[2024-11-17] MEDS ORDERED: FENTANYL CITRATE/PF 50 MCG/ML VIAL ONE (02:39)
[2024-11-17] MEDS ORDERED: BUPIVACAINE HCL/PF 0.25% (2.5MG/ML) 10 ML VIAL ONE (02:39)
[2024-11-17] MEDS: FENTANYL/BUPIVACAINE/NS/PF - PCEA - 50 ML DISP.SYRIN EP SCH (02:50)
[2024-11-17] MEDS ORDERED: LIDOCAINE HCL 1% PRESERVATIVE FREE - 30ML VIAL ONE (03:05)
[2024-11-17] MEDS ORDERED: OXYTOCIN 20 UNITS in 0.9% NS 20 UNIT/1,000 ML INFUS.BAG IV ONE (03:05)
[2024-11-17] MEDS ORDERED: WITCH HAZEL 50% (TUCKS) 40 PAD/JAR PAD TP PRN (03:49)
[2024-11-17] MEDS ORDERED: BENZOCAINE 28 GM HEMORRHOIDAL OINTMENT TP PRN (03:49)
[2024-11-17] MEDS ORDERED: ACETAMINOPHEN 325 MG TABLET (FP) PO PRN (03:49)
[2024-11-17] MEDS ORDERED: METHYLERGONOVINE MALEATE 0.2 MG/1 ML AMP IM PRN (03:49)
[2024-11-17] MEDS ORDERED: oxyCODONE HCL 5 MG TABLET PO PRN (03:49)
[2024-11-17] MEDS ORDERED: BISACODYL 10 MG SUPP.RECT RC PRN (03:49)
[2024-11-17 04:06] LABS: CORD BASE EXCESS -6.4 mmol/L (0-2); CORD HCO3 20.4 mmHg (20-29); CORD PCO2 44.7 mmHg (30-78); CORD pH 7.277 (7.14-7.44)
[2024-11-17 04:09] LABS: CORD BASE EXCESS -4.5 mmol/L (0-2); CORD HCO3 24.1 mmHg (20-29); CORD PCO2 57.5 mmHg (30-78); CORD pH 7.24 (7.14-7.44)
[2024-11-17] MEDS: OXYTOCIN 20 UNITS in 0.9% NS 20 UNIT/1,000 ML INFUS.BAG IV SCH (04:15)
[2024-11-17] MEDS ORDERED: IBUPROFEN 600 MG TABLET (FP) PO ONE (05:41)
[2024-11-17] MEDS: IBUPROFEN 600 MG TABLET (FP) PO PRN (05:51)
[2024-11-17 06:00] VITALS: RESP 18
[2024-11-17] MEDS: PRENATAL VITAMINS W/ FOLIC ACID TABLET (FP) PO SCH (09:18)
[2024-11-17] MEDS: BENZOCAINE 20% 57 GM BOTTLE TP PRN (09:40)
[2024-11-18 08:53] LABS: BASO % 0.6 % (0-2.0); EOS % 1.2 % (0-4.5); HEMATOCRIT 36.5 % (32.4-45.2); HEMOGLOBIN 11.8 GM/dL (10.7-15.3); LYMPH % 28.2 % (8-40); MCH 29.6 pg (25.7-33.7); MCHC 32.5 g/dl (32.0-36.0); MEAN CELL VOLUME 91.1 fl (80-96); MEAN PLT VOLUME 10.7 fl (7.5-11.1); MONO % 6.6 % (3.8-10.2); NEUT % 63.4 % (42.8-82.8); PLATELET COUNT 168 10^3/uL (134-434); RDW 15.4 % (11.6-15.6); WHITE BLOOD COUNT 13.1 K/mm3 (4.0-10.0)
[2024-11-18] MEDS: SENNOSIDES/DOCUSATE COMBO (SENNA PLUS) TABLET (UD) PO PRN (21:00)
[2024-11-19 10:07] VITALS: BP 112/79; PULSE 76; TEMP 98.4
== END 2024-11-19 11:35 | disposition home or self-care (01) | DRG 560 ==
LOC: JLDR 15:57 → J3W 11-17 06:04
PROVIDERS: ADMIT Obstetrics & Gynecology; ATTEND Obstetrics & Gynecology
PROC: 10E0XZZ Delivery of Products of Conception, External Approach (ICD-10-PCS; principal; 2024-11-17)
DX: O42.913 Preterm premature rupture of membranes, unspecified as to length of time between rupture and onset of labor, third trimester (principal); Z3A.36 36 weeks gestation of pregnancy; Z37.0 Single live birth
CPT/HCPCS: 36415; 36600; 59409; 80048; 82803; 85025; 85610; 85730; 86780; 86850; 86900; 86901